=== PATIENT | female | born 1990 | race Caucasian/White ===

== ENCOUNTER 2022-07-30 20:44 | Emergency (ER) | payer MEDICAID ==
[2022-07-30] MEDS ORDERED: Fluconazole 150 MG Tab PO ONE (21:23)
== END 2022-07-30 21:52 | disposition home or self-care (01) ==
LOC: JP.ED 20:44
DX: B37.31 Acute candidiasis of vulva and vagina (principal)
CPT/HCPCS: 81001; 99283; A9270